=== PATIENT | male | born 1970 | race Caucasian/White ===

== ENCOUNTER 2019-09-03 06:14 | Day surgery (SDC) | payer OTHER, MEDICARE ==
[~2019-09-03] VITALS: Ht 182.9 cm; Wt 92.1 kg
[~2019-09-03 06:14] MED LIST: ALPR1 PO; ATOR10 PO; Baclofen10 MG PO; CITA20 PO; Fludrocortison0.1 MG PO; NAC500 MG PO; Norco 7.5-3251 EACH PO; PROP60 PO; Seroquel50 MG PO
[2019-09-03] MEDS ORDERED: PAROXETINE ER37.5 MG (07:08)
[2019-09-03] MEDS ORDERED: Buspirone HCl15 MG (07:08)
[2019-09-03] MEDS ORDERED: Esgic Tablet1 EACH (07:08)
[2019-09-03] MEDS ORDERED: TOPI50 (07:08)
[2019-09-03] MEDS ORDERED: GABA300 (07:09)
--- NOTE | 2019-09-03 08:40 | NUR ---
09/03/19 0840 Jeff Padilla 0.25 MG ADDED TO 50 MLS NACL TO MAKE CONCENTRATION OF 1:200,000.
== END 2019-09-03 10:01 | disposition home or self-care (01) ==
LOC: ORSCSDS 06:14
PROVIDERS: Orthopaedic Surgery
PROC: 0RNJ4ZZ Release Right Shoulder Joint, Percutaneous Endoscopic Approach (ICD-10-PCS; principal; 2019-09-03 07:30)
DX: M75.111 Incomplete rotator cuff tear or rupture of right shoulder, not specified as traumatic (principal); S43.491A Other sprain of right shoulder joint, initial encounter; F41.8 Other specified anxiety disorders; E78.00 Pure hypercholesterolemia, unspecified; G47.33 Obstructive sleep apnea (adult) (pediatric); I10 Essential (primary) hypertension; Z79.899 Other long term (current) drug therapy
CPT/HCPCS: J0171; J0690; J1100; J1885; J2250; J2370; J2405; J2704; J2710; J3010; J7120

== ENCOUNTER 2021-04-27 09:21 | Day surgery (SDC) | payer OTHER ==
[~2021-04-27] VITALS: Ht 185.4 cm; Wt 95.7 kg
[~2021-04-27 09:21] MED LIST changes: +Buspirone HCl15 MG; +Buspirone HCl15 MG PO; +EXTRA PAIN REL1 EAC2 PO; +Esgic Tablet1 EACH; +GABA300; +NORTRIPTYLINE H; +Neurontin600 MG PO; +PAROXETINE ER37.5 MG; +TOPI50; +VALIUM PO; +VENL75ER PO; +ZANAFLEX PO
[2021-04-27] MEDS ORDERED: HYDACE10B (10:02)
== END 2021-04-27 11:22 | disposition home or self-care (01) ==
LOC: ORSCSDS 09:21
PROVIDERS: Surgery
PROC: 0DJD8ZZ Inspection of Lower Intestinal Tract, Via Natural or Artificial Opening Endoscopic (ICD-10-PCS; principal; 2021-04-27 10:45)
DX: Z12.11 Encounter for screening for malignant neoplasm of colon (principal); F41.9 Anxiety disorder, unspecified; F41.8 Other specified anxiety disorders; Z79.82 Long term (current) use of aspirin; Z79.899 Other long term (current) drug therapy
CPT/HCPCS: J2704; J7120